=== PATIENT | male | born 2000 | race Caucasian/White ===

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

== ENCOUNTER 2022-01-01 21:25 | Emergency (ER) | payer OTHER ==
[~2022-01-01] VITALS: Ht 187.9 cm; Wt 107.5 kg
[2022-01-01 21:41] VITALS: BP 124/66
== END 2022-01-01 22:34 | disposition home or self-care (01) ==
LOC: ED 21:25
DX: S05.02XA Injury of conjunctiva and corneal abrasion without foreign body, left eye, initial encounter (principal); Z79.899 Other long term (current) drug therapy; X58.XXXA Exposure to other specified factors, initial encounter; Y93.89 Activity, other specified; Y92.89 Other specified places as the place of occurrence of the external cause; Y99.8 Other external cause status

== ENCOUNTER 2022-01-18 11:57 | Emergency (ER) | payer OTHER ==
[~2022-01-18] VITALS: Ht 185.4 cm; Wt 106.6 kg
[2022-01-18 12:01] VITALS: BP 135/72
[2022-01-18] MEDS ORDERED: PREDNISONE10 MG PO (12:11)
== END 2022-01-18 12:30 | disposition home or self-care (01) ==
LOC: ED 11:57
DX: L23.7 Allergic contact dermatitis due to plants, except food (principal); Z79.899 Other long term (current) drug therapy

== ENCOUNTER 2022-04-06 10:03 | Emergency (ER) | payer OTHER ==
[~2022-04-06] VITALS: Ht 187.9 cm; Wt 102.1 kg
[2022-04-06 10:12] VITALS: BP 118/61
[2022-04-06 10:49] LABS: BASO % 0.5 % (0.0-1.0); EOS # 0.1 10*3/uL (0.0-0.4); EOS % 0.8 % (1.0-4.0); HEMATOCRIT 42.5 % (42.0-52.0); LYMPH # 0.6 10*3/uL (1.3-4.4); MEAN CELL VOLUME 90.4 fl (80.0-94.0); MEAN CORPUSCULAR HGB 30.6 pg (27.0-31.0); MEAN CORPUSCULAR HGB CONC 33.9 g/dl (33.0-37.0); MONO # 0.6 10*3/uL (0.1-1.0); MONO % 7.3 % (3.0-9.0); NEUT # 6.6 10*3/uL (2.3-7.9); NEUT % 84.3 % (47.0-73.0); PLATELET COUNT AUTOMATED 299 10*3/uL (130-400); RED CELL DISTRI WIDTH 11.8 % (0-14.5); WHITE BLOOD COUNT 7.8 10*3/uL (4.8-10.8)
[2022-04-06 11:04] LABS: ALKALINE PHOSPHATASE 55 U/L (45-117); BUN 13 mg/dl (7-24); CHLORIDE 104 mmol/L (98-107); CREATININE 0.86 mg/dL (0.70-1.30); POTASSIUM 3.8 mmol/L (3.5-5.1); SGOT/AST 58 IU/L (3-35); SGPT/ALT 131 U/L (12-78); SODIUM 137 mmol/L (136-145); TOTAL PROTEIN 7.5 gm/dL (6.4-8.2)
[2022-04-06] MEDS ORDERED: TYLENOL325 M1 PO (11:52)
[2022-04-06] MEDS ORDERED: NAPROXEN250 MG PO (11:52)
== END 2022-04-06 12:25 | disposition home or self-care (01) ==
LOC: ED 10:03
PROVIDERS: Emergency Medicine
DX: B34.9 Viral infection, unspecified (principal); Z20.822 Contact with and (suspected) exposure to COVID-19; Z79.899 Other long term (current) drug therapy; Z90.89 Acquired absence of other organs

== ENCOUNTER 2022-04-22 04:51 | Emergency (ER) | payer MEDICARE ==
[~2022-04-22] VITALS: Ht 187.9 cm; Wt 103.9 kg
[~2022-04-22 04:51] MED LIST changes: +NAPROXEN250 MG PO; +TYLENOL325 M1 PO
[2022-04-22 05:00] VITALS: BP 112/59
[2022-04-22 05:57] LABS: BILIRUBIN Negative (Negative); BLOOD Negative (Negative); CLARITY Clear (Clear); GLUCOSE Negative (Negative); KETONE Negative (Negative); LEUKO ESTERASE 2+ (Negative); NITRITE Positive (Negative)
[2022-04-22 06:07] LABS: COLOR Dark Yellow (Yellow)
[2022-04-22 06:16] LABS: BACTERIA 1+; RBC 16-20 rbc/hpf (0-2); WBC 16-20 wbc/hpf (0-5)
[2022-04-22] MEDS ORDERED: CEPHALEXIN500 M1 PO (06:20)
== END 2022-04-22 06:38 | disposition home or self-care (01) ==
LOC: ED 04:51
PROVIDERS: Family Medicine
DX: N39.0 Urinary tract infection, site not specified (principal); Z79.899 Other long term (current) drug therapy; Z90.89 Acquired absence of other organs

== ENCOUNTER 2022-06-24 08:54 | Emergency (ER) | payer OTHER ==
[~2022-06-24] VITALS: Ht 187.9 cm; Wt 104.3 kg
[2022-06-24 09:15] VITALS: BP 133/54
== END 2022-06-24 12:25 | disposition home or self-care (01) ==
LOC: ED 08:54
DX: J10.1 Influenza due to other identified influenza virus with other respiratory manifestations (principal); Z20.822 Contact with and (suspected) exposure to COVID-19

== ENCOUNTER 2022-07-01 20:40 | Emergency (ER) | payer OTHER ==
[~2022-07-01] VITALS: Ht 187.9 cm; Wt 104.3 kg
[2022-07-01 21:08] VITALS: BP 141/121
[2022-07-01] MEDS ORDERED: ZITHROMAX250 MG PO (22:51)
== END 2022-07-01 23:03 | disposition home or self-care (01) ==
LOC: ED 20:40
DX: R50.9 Fever, unspecified (principal); Z20.822 Contact with and (suspected) exposure to COVID-19; R05.9 Cough, unspecified; J11.1 Influenza due to unidentified influenza virus with other respiratory manifestations; Z79.899 Other long term (current) drug therapy

== ENCOUNTER 2023-01-27 07:34 | Emergency (ER) | payer OTHER ==
[~2023-01-27] VITALS: Ht 185.4 cm; Wt 105.7 kg
[~2023-01-27 07:34] MED LIST changes: +ZITHROMAX250 MG PO
[2023-01-27 07:43] VITALS: BP 129/61
[2023-01-27] MEDS ORDERED: PREDNISONE50 MG PO (07:50)
== END 2023-01-27 08:04 | disposition home or self-care (01) ==
LOC: ED 07:34
DX: L25.9 Unspecified contact dermatitis, unspecified cause (principal); Z91.048 Other nonmedicinal substance allergy status; Z79.2 Long term (current) use of antibiotics; Z79.899 Other long term (current) drug therapy

== ENCOUNTER 2023-02-01 13:08 | Emergency (ER) | payer OTHER ==
[~2023-02-01] VITALS: Ht 187.9 cm; Wt 105.7 kg
[~2023-02-01 13:08] MED LIST changes: +PREDNISONE50 MG PO
[2023-02-01 13:47] VITALS: BP 123/69
[2023-02-01] MEDS ORDERED: NAPROSYN500 MG PO (14:55)
== END 2023-02-01 15:28 | disposition home or self-care (01) ==
LOC: ED 13:08
DX: S83.005A Unspecified dislocation of left patella, initial encounter (principal); J45.909 Unspecified asthma, uncomplicated; F41.9 Anxiety disorder, unspecified; Z88.8 Allergy status to other drugs, medicaments and biological substances; Z98.890 Other specified postprocedural states; X50.1XXA Overexertion from prolonged static or awkward postures, initial encounter; Y93.89 Activity, other specified; Y92.89 Other specified places as the place of occurrence of the external cause; Y99.0 Civilian activity done for income or pay

== ENCOUNTER → 2023-02-13 | Outpatient (CLI) | payer OTHER ==
[~2023-02-13] MED LIST changes: +NAPROSYN500 MG PO
== END | disposition home or self-care (01) ==
LOC: US 00:49
PROVIDERS: ATTEND Nurse Practitioner
DX: K76.0 Fatty (change of) liver, not elsewhere classified (principal); K82.9 Disease of gallbladder, unspecified

== ENCOUNTER 2023-03-18 04:59 | Emergency (ER) | payer OTHER ==
[~2023-03-18] VITALS: Ht 190.5 cm; Wt 102.1 kg
[2023-03-18 05:06] VITALS: BP 115/55
[2023-03-18] MEDS ORDERED: PREDNISONE50 MG PO (05:11)
== END 2023-03-18 05:21 | disposition home or self-care (01) ==
LOC: ED 04:59
DX: L23.7 Allergic contact dermatitis due to plants, except food (principal); K21.9 Gastro-esophageal reflux disease without esophagitis; Z91.048 Other nonmedicinal substance allergy status; Z79.899 Other long term (current) drug therapy

== ENCOUNTER 2023-03-30 11:32 | Emergency (ER) | payer OTHER ==
[~2023-03-30] VITALS: Ht 187.9 cm; Wt 106.6 kg
[2023-03-30 12:01] VITALS: BP 124/64
== END 2023-03-30 13:38 | disposition home or self-care (01) ==
LOC: ED 11:32
DX: S83.91XA Sprain of unspecified site of right knee, initial encounter (principal); J45.909 Unspecified asthma, uncomplicated; I10 Essential (primary) hypertension; Z98.890 Other specified postprocedural states; X58.XXXA Exposure to other specified factors, initial encounter; Y93.89 Activity, other specified; Y92.009 Unspecified place in unspecified non-institutional (private) residence as the place of occurrence of the external cause; Y99.8 Other external cause status

== ENCOUNTER 2023-06-17 03:23 | Emergency (ER) | payer SELFPAY ==
[~2023-06-17 03:23] MED LIST changes: +VIBRA-TAB100 MG PO
[2023-06-17 03:38] VITALS: BP 136/76
== END 2023-06-17 05:19 | disposition home or self-care (01) ==
LOC: ED 03:23
DX: B34.9 Viral infection, unspecified (principal); J45.909 Unspecified asthma, uncomplicated; I10 Essential (primary) hypertension; Z98.890 Other specified postprocedural states; Z20.822 Contact with and (suspected) exposure to COVID-19

== ENCOUNTER 2023-12-24 01:05 | Emergency (ER) | payer OTHER ==
[~2023-12-24] VITALS: Ht 190.5 cm; Wt 115.7 kg
[2023-12-24 01:09] VITALS: BP 117/80
[2023-12-24] MEDS ORDERED: CIPROFLOXACIN H10 ML OPH (01:38)
== END 2023-12-24 02:28 | disposition home or self-care (01) ==
LOC: ED 01:05
DX: S05.02XA Injury of conjunctiva and corneal abrasion without foreign body, left eye, initial encounter (principal); H16.133 Photokeratitis, bilateral; X58.XXXA Exposure to other specified factors, initial encounter; Y93.89 Activity, other specified; Y92.89 Other specified places as the place of occurrence of the external cause; Y99.8 Other external cause status

== ENCOUNTER 2024-07-27 10:32 | Emergency (ER) | payer BC ==
[~2024-07-27] VITALS: Ht 190.5 cm; Wt 114.5 kg
[~2024-07-27 10:32] MED LIST changes: +CIPROFLOXACIN H10 ML OPH
[2024-07-27 10:37] VITALS: BP 91/50
[2024-07-27] MEDS ORDERED: Ondansetron Hydrochloride 4 MG TAB SL ONE (11:00)
[2024-07-27 11:12] LABS: HEMATOCRIT 46.5 % (42.0-52.0); MEAN CELL VOLUME 89.6 fl (80.0-94.0); MEAN CORPUSCULAR HGB 30.3 pg (27.0-31.0); MEAN CORPUSCULAR HGB CONC 33.8 g/dl (33.0-37.0); MEAN PLATELET VOLUME 8.8 fl (9.6-12.3); PLATELET COUNT AUTOMATED 337 10*3/uL (130-400); RED BLOOD COUNT 5.19 10*6/uL (4.50-5.90); WHITE BLOOD COUNT 16.8 10*3/uL (4.8-10.8)
[2024-07-27 11:16] LABS: MANUAL DIFF REFLEX YES
[2024-07-27 11:33] LABS: BUN 23 mg/dl (9-23); CHLORIDE 102 mmol/L (98-107); POTASSIUM 5.3 mmol/L (3.4-5.1)
[2024-07-27 11:43] LABS: PLATELET SUFFICIENCY NORMAL (NORMAL); TOTAL CELLS COUNTED 100 #CELLS
[2024-07-27] MEDS ORDERED: Ondansetron4 MG SL (12:21)
== END 2024-07-27 12:41 | disposition home or self-care (01) ==
LOC: ED 10:32
PROVIDERS: Internal Medicine
DX: A08.4 Viral intestinal infection, unspecified (principal); Z20.822 Contact with and (suspected) exposure to COVID-19; R11.2 Nausea with vomiting, unspecified; R51.9 Headache, unspecified; Z79.899 Other long term (current) drug therapy

== ENCOUNTER 2024-08-13 15:08 | Emergency (ER) | payer BC ==
[~2024-08-13] VITALS: Ht 190.5 cm; Wt 111.1 kg
[~2024-08-13 15:08] MED LIST changes: +Ondansetron4 MG SL
[2024-08-13 15:24] VITALS: BP 116/58
[2024-08-13] MEDS ORDERED: SODIUM CHLORIDE 0.9% 1,000 ML IV ONE (15:30)
[2024-08-13] MEDS ORDERED: IBUPROFEN 600 MG TAB PO ONE (15:35)
[2024-08-13] MEDS ORDERED: ACETAMINOPHEN 325 MG TAB PO ONE (15:35)
[2024-08-13 15:57] LABS: BASO % 0.3 % (0.0-1.0); EOS % 0.2 % (1.0-4.0); HEMATOCRIT 42.9 % (42.0-52.0); MEAN CELL VOLUME 89.6 fl (80.0-94.0); MEAN CORPUSCULAR HGB 29.9 pg (27.0-31.0); MEAN CORPUSCULAR HGB CONC 33.3 g/dl (33.0-37.0); MEAN PLATELET VOLUME 8.8 fl (9.6-12.3); MONO # 0.9 10*3/uL (0.1-1.0); MONO % 5.4 % (3.0-9.0); NEUT # 13.8 10*3/uL (2.3-7.9); PLATELET COUNT AUTOMATED 297 10*3/uL (130-400); RED BLOOD COUNT 4.79 10*6/uL (4.50-5.90); RED CELL DISTRI WIDTH 11.9 % (0-14.5); WHITE BLOOD COUNT 15.9 10*3/uL (4.8-10.8)
[2024-08-13 16:21] LABS: BUN 16 mg/dl (9-23); CHLORIDE 102 mmol/L (98-107); POTASSIUM 3.8 mmol/L (3.4-5.1)
[2024-08-13] MEDS ORDERED: AZITHROMYCIN 250 MG TAB PO ONE (17:30)
[2024-08-13] MEDS ORDERED: predniSONE 20 MG TAB PO ONE (17:30)
[2024-08-13] MEDS ORDERED: ZITHROMAX250 MG PO (17:32)
[2024-08-13] MEDS ORDERED: PREDNISONE50 MG PO (17:32)
== END 2024-08-13 17:50 | disposition home or self-care (01) ==
LOC: ED 15:08
PROVIDERS: Nurse Practitioner Family
DX: J98.4 Other disorders of lung (principal); Z20.822 Contact with and (suspected) exposure to COVID-19; J45.909 Unspecified asthma, uncomplicated; I10 Essential (primary) hypertension; Z98.890 Other specified postprocedural states

== ENCOUNTER → 2024-10-18 | Outpatient (CLI) | payer BC | END | disposition home or self-care (01) | LOC: RAD 12:24 | PROVIDERS: ATTEND Nurse Practitioner | DX: M25.562 Pain in left knee (principal) ==